=== PATIENT | female | born 1955 | race Hispanic/Latino ===

== ENCOUNTER 2023-11-10 07:36 | Emergency (ER) | payer OTHER, MEDICARE ==
[~2023-11-10] VITALS: Ht 157.5 cm; Wt 90.7 kg
[2023-11-10 07:45] VITALS: PULSE 99; RESP 15; TEMP 99.5; O2SAT 99
[2023-11-10 08:28] LABS: STREPTOCOCCUS GRP A ANTIGEN NEGATIVE (NEGATIVE)
[2023-11-10 09:02] LABS: INFLUENZAE A&B ANTIGEN (RAPID) NEGATIVE (NEGATIVE)
[2023-11-10] MEDS ORDERED: PAXLOVID 300-11 EAC1 PO (09:12)
== END 2023-11-10 09:10 | disposition home or self-care (01) ==
LOC: ER 07:43
DX: R50.9 Fever, unspecified (principal); U07.1 COVID-19; R05.9 Cough, unspecified; M32.9 Systemic lupus erythematosus, unspecified
CPT/HCPCS: 83518; 87070; 87400; 99283; U0002

== ENCOUNTER 2023-12-21 16:40 | Emergency (ER) | payer OTHER, MEDICARE ==
[~2023-12-21] VITALS: Ht 157.5 cm; Wt 90.7 kg
[~2023-12-21 16:40] MED LIST: PAXLOVID 300-11 EAC1 PO
[2023-12-21 17:11] VITALS: TEMP 99.3
[2023-12-21] MEDS ORDERED: ONDANSETRON ODT4 MG PO (17:34)
[2023-12-21 17:45] LABS: BASOPHILS % 0.4 % (0.0-1.0); EOSINOPHILS # (AUTO) 0.1 (0.0-0.4); EOSINOPHILS % 1.1 % (0.0-6.0); HEMATOCRIT 39.5 % (34.2-44.1); HEMOGLOBIN 13.4 g/dL (12.0-16.0); LYMPHOCYTES # (AUTO) 0.3 (1.0-3.2); LYMPHOCYTES % 3.9 % (18.0-39.1); MEAN CORPUSCULAR HEMOGLOBIN 31.6 pg (28-32); MEAN CORPUSCULAR HGB CONC 33.9 g/dL (31-35); MEAN CORPUSCULAR VOLUME 93.2 fL (81-99); MONOCYTES # (AUTO) 0.3 (0.2-0.8); MONOCYTES % 3.2 % (4.4-11.3); NEUTROPHILS # (AUTO) 7.4 (2.1-6.9); NEUTROPHILS % 90.8 % (38.7-80.0); PLATELET COUNT 181 x10e3/uL (140-360); RED BLOOD COUNT 4.24 x10e6/uL (3.6-5.1); RED CELL DISTRIBUTION WIDTH 13.3 % (11.7-14.4); WHITE BLOOD COUNT 8.13 x10e3/uL (4.8-10.8)
[2023-12-21] MEDS: SODIUM CHLORIDE 0.9% 1000ML 1,000 ML IV STA (17:58)
[2023-12-21] MEDS: ONDANSETRON HCL INJ 2MG/ML 2ML 2 MG/ML VIAL IV PRN (17:58)
[2023-12-21 18:02] LABS: ALBUMIN/GLOBULIN RATIO 1.5 (0.8-2.0); ANION GAP 16.1 mmol/L (8-16); CALCIUM 8.5 mg/dL (8.4-10.2); CREATININE, SERUM 1.03 mg/dL (0.57-1.11); POTASSIUM 4.1 mmol/L (3.5-5.1); TOTAL PROTEIN 6.7 g/dL (6.5-8.1)
[2023-12-21 19:04] VITALS: PULSE 68; RESP 16
[2023-12-21 19:10] VITALS: BP 119/60; PULSE 68; RESP 16; O2SAT 100
== END 2023-12-21 19:04 | disposition home or self-care (01) ==
LOC: ER 17:04
DX: R50.9 Fever, unspecified (principal); R11.2 Nausea with vomiting, unspecified; R19.7 Diarrhea, unspecified; I10 Essential (primary) hypertension; M32.9 Systemic lupus erythematosus, unspecified
CPT/HCPCS: 36415; 80053; 85025; 99283; J2405; J2470; J7030

== ENCOUNTER → 2024-04-23 | Emergency (ER) | payer MEDICARE, OTHER ==
[~2024-04-23] VITALS: Ht 157.5 cm; Wt 90.7 kg
[~2024-04-23] MED LIST changes: +ONDANSETRON ODT4 MG PO
[2024-04-23 15:20] VITALS: PULSE 77; RESP 15; TEMP 97.5; O2SAT 99
== END | disposition home or self-care (01) ==
LOC: ER 15:30
DX: H92.01 Otalgia, right ear (principal); H61.21 Impacted cerumen, right ear; I10 Essential (primary) hypertension; M32.9 Systemic lupus erythematosus, unspecified
CPT/HCPCS: 99283